=== PATIENT | female | born 1965 | race Caucasian/White ===

== ENCOUNTER 2019-07-05 21:01 | Observation (INO) | payer BC ==
--- NOTE | 2019-07-05 21:04 | EDM.PDOC ---
ED HPI GENERAL MEDICAL PROBLEM - General Chief Complaint: Cardiovascular Problem Stated Complaint: HEART SKIPPING BEATS Time Seen by Provider: 07/05/19 21:03 Source of Information: Reports: Patient History Limitations: Reports: No Limitations - History of Present Illness INITIAL COMMENTS - FREE TEXT/NARRATIVE: Patient is a 54-year-old woman who has a history of PSVT for which she is on Toprol is complaining of having skipped beats which started this morning. These seem to be occurring every 3 to 5 minutes. This is happening more frequently while she is in the emergency department. Patient is feeling lightheaded for the skipped beat and briefly feels some chest discomfort for the few seconds that is occurring. She is not having any chest discomfort otherwise. She states symptoms are decreased when she is doing activity. She is not feeling short of breath nauseous or diaphoretic. He is claiming slightly decreased appetite today. She has not had previously similar symptoms. She denies any swelling to her calves or ankles or any bloody or tarry stools. Patient has taken nothing for current symptoms. Onset: Today Duration: Intermittent Location: Reports: Chest Quality: Reports: Dull Severity: Mild Improves with: Reports: Movement Worsens with: Reports: Rest Associated Symptoms: Reports: Chest Pain, Loss of Appetite. Denies: Diaphoresis , Fever/Chills, Malaise, Nausea/Vomiting, Shortness of Breath, Syncope Generalized Pain Score (Numeric/FACES): 8 - Related Data Allergies Allergy/AdvReac Type Severity Reaction Status Date / Time No Known Allergies Allergy Verified 07/05/19 21:23 Home Meds: Home Meds Levothyroxine 150 mcg PO ACBREAKFAST 07/05/19 [History] Metoprolol Tartrate 100 mg PO BID 07/05/19 [History] atorvaSTATin [Lipitor] 40 mg PO BEDTIME 07/05/19 [History] hydroCHLOROthiazide [Hydrochlorothiazide] 12.5 mg PO DAILY 07/05/19 [History] ED ROS GENERAL - Review of Systems Review Of Systems: Comprehensive ROS is negative, except as noted in HPI. ED EXAM, GENERAL - Physical Exam Exam: See Below Exam Limited By: No Limitations General Appearance: Alert, No Apparent Distress Head: Normocephalic Neck: Normal Inspection, Supple Respiratory/Chest: No Respiratory Distress, Lungs Clear, Normal Breath Sounds Cardiovascular: Regular Rate, Rhythm, No JVD GI/Abdominal: Normal Bowel Sounds, Soft, Non-Tender, No Organomegaly Back Exam: Normal Inspection, Full Range of Motion Extremities: Normal Inspection Neurological: Alert, Oriented, Normal Cognition Psychiatric: Normal Affect Skin Exam: Warm, Dry EKG INTERPRETATION Rhythm: NSR P-Wave: Present QRS: Normal ST-T: Normal EKG Interpretation Comments: Patient is having occasional skipped beat. She does not appear to be in any heart block. She does have inverted T waves and lead V3 and in lead III. Course - Vital Signs Text/Narrative:: Patient's potassium was 2.7. She has been given 40 mEq p.o. I am to encourage her to have potassium rich diet. Patient has a Zio monitor placed. He is planning to return to [place] over the next few days. If she is feeling lightheaded she will use a health erik on her phone to measure her pulse rate and if it is lower than 40 she will immediately return to emergency department. She is to follow-up with her PCP and verification clerk when she returns home for recheck. Return to emergency department anytime she is feeling worse. Last Recorded V/S: Last Vital Signs Temp 37.0 C 07/05/19 21:25 Pulse 92 07/05/19 23:34 Resp 16 07/05/19 23:34 BP 156/113 H 07/05/19 23:34 Pulse Ox 96 07/05/19 23:34 - Orders/Labs/Meds Orders: Active Orders 24 hr Category Date Time Status EKG 12 Lead [EKG Documentation Completion] [RC] STAT Care 07/05/19 21:29 Active Zio Holter Monitor > 48 Hours [RC] .PRN Care 07/05/19 22:06 Active Potassium Chloride Riders [KCL 20 MEQ in Water 50 ML] Med 07/05/19 23:17 Active 10 meq Premix Bag 1 bag IV ONETIME Medication Orders Potassium Chloride 10 meq/ (Premix) 25 mls @ 12.5 mls/hr IV ONETIME ONE Stop: 07/06/19 00:52 Last Admin: 07/05/19 23:29 Dose: 12.5 mls/hr Labs: Laboratory Tests 07/05/19 07/05/19 Range/Units 21:10 21:10 WBC 10.99 (4.0-11.0) K/uL RBC 4.67 (4.30-5.90) M/uL Hgb 13.6 (12.0-16.0) g/dL Hct 40.1 (36.0-46.0) % MCV 85.9 (80.0-98.0) fL MCH 29.1 (27.0-32.0) pg MCHC 33.9 (31.0-37.0) g/dL RDW Std Deviation 40.7 (28.0-62.0) fl RDW Coeff of Yifan 13 (11.0-15.0) % Plt Count 278 (150-400) K/uL MPV 8.70 (7.40-12.00) fL Neut % (Auto) 57.3 (48.0-80.0) % Lymph % (Auto) 29.3 (16.0-40.0) % Meade % (Auto) 10.6 (0.0-15.0) % Eos % (Auto) 2.4 (0.0-7.0) % Baso % (Auto) 0.4 (0.0-1.5) % Neut # (Auto) 6.3 H (1.4-5.7) K/uL Lymph # (Auto) 3.2 H (0.6-2.4) K/uL Meade # (Auto) 1.2 H (0.0-0.8) K/uL Eos # (Auto) 0.3 (0.0-0.7) K/uL Baso # (Auto) 0.0 (0.0-0.1) K/uL Nucleated RBC % 0.0 /100WBC Nucleated RBCs # 0 K/uL Sodium 141 (136-145) mmol/L Potassium 2.7 L (3.5-5.1) mmol/L Chloride 102 (98-107) mmol/L Carbon Dioxide 27.7 (21.0-32.0) mmol/L BUN 15 (7.0-18.0) mg/dL Creatinine 0.9 (0.6-1.0) mg/dL Est Cr Clr Drug Dosing 70.30 mL/min Estimated GFR (MDRD) > 60.0 ml/min Glucose 95 (74-106) mg/dL Calcium 7.7 L (8.5-10.1) mg/dL Magnesium 1.9 (1.8-2.4) mg/dL Total Bilirubin 0.4 (0.2-1.0) mg/dL AST 29 (15-37) IU/L ALT 61 (14-63) IU/L Alkaline Phosphatase 101 (46-116) U/L Troponin I < 0.050 (0.000-0.056) ng/mL Total Protein 7.2 (6.4-8.2) g/dL Albumin 3.9 (3.4-5.0) g/dL Globulin 3.3 (2.6-4.0) g/dL Albumin/Globulin Ratio 1.2 (0.9-1.6) Meds: Medications Generic Name Dose Route Start Last Admin Trade Name Freq PRN Reason Stop Dose Admin Potassium Chloride 10 meq/ 25 mls @ 12.5 mls/hr 07/05/19 23:17 07/05/19 23:29 Premix IV 07/06/19 00:52 12.5 mls/hr ONETIME ONE Administration Discontinued Medications Generic Name Dose Route Start Last Admin Trade Name Freq PRN Reason Stop Dose Admin Sodium Chloride 1,000 mls @ 999 mls/hr 07/05/19 22:38 07/05/19 23:04 Normal Saline IV 07/05/19 23:38 999 mls/hr .BOLUS ONE Administration Potassium Chloride 20 meq/ 50 mls @ 25 mls/hr 07/05/19 22:53 Premix IV 07/06/19 00:52 ONETIME ONE Potassium Chloride 40 meq 07/05/19 22:36 07/05/19 23:04 Klor-Con M20 PO 07/05/19 22:37 40 meq ONETIME ONE Administration Departure - Departure Time of Disposition: 23:50 Disposition: Home, Self-Care 01 Condition: Good Clinical Impression: Palpitations, Hypokalemia Instructions: Palpitations, [id number], Potassium Content of Foods Referrals: PCP,None [Primary Care Provider] - Forms: ED Department Discharge Additional Instructions: The following information is given to patients seen in the emergency department who are being discharged to home. This information is to outline your options for follow-up care. We provide all patients seen in our emergency department with a follow-up referral. The need for follow-up, as well as the timing and circumstances, are variable depending upon the specifics of your emergency department visit. If you don't have a primary care physician on staff, we will provide you with a referral. We always advise you to contact your personal physician following an emergency department visit to inform them of the circumstance of the visit and for follow-up with them and/or the need for any referrals to a consulting specialist. The emergency department will also refer you to a specialist when appropriate. This referral assures that you have the opportunity for follow-up care with a specialist. All of these measure are taken in an effort to provide you with optimal care, which includes your follow-up. Under all circumstances we always encourage you to contact your private physician who remains a resource for coordinating your care. When calling for follow-up care, please make the office aware that this follow-up is from your recent emergency room visit. If for any reason you are refused follow-up, please contact the [facility] Emergency Department at and asked to speak to the emergency department charge nurse. Care Plan Goals: Potassium rich foods. Return to ER symptoms are worse or heart rate less than 50. Follow-up with PCP and verification clerk when you return home to [place]. Sepsis Event Note - Focused Exam Vital Signs: Vital Signs Temp Pulse Resp BP Pulse Ox 07/05/19 23:34 92 16 156/113 H 96 07/05/19 22:36 70 16 148/73 H 97 07/05/19 22:06 71 14 128/72 98 07/05/19 21:41 81 12 159/93 H 97 07/05/19 21:25 37.0 C 95 18 151/71 H 98 Date Exam was Performed: 07/05/19 Time Exam was Performed: 23:48 - My Orders Last 24 Hours: My Active Orders 07/05/19 21:29 EKG 12 Lead [EKG Documentation Completion] [RC] STAT 07/05/19 22:06 Zio Holter Monitor > 48 Hours [RC] .PRN 07/05/19 23:17 Potassium Chloride Riders [KCL 20 MEQ in Water 50 ML] 10 meq Premix Bag 1 bag IV ONETIME - Assessment/Plan Last 24 Hours: My Active Orders 07/05/19 21:29 EKG 12 Lead [EKG Documentation Completion] [RC] STAT 07/05/19 22:06 Zio Holter Monitor > 48 Hours [RC] .PRN 07/05/19 23:17 Potassium Chloride Riders [KCL 20 MEQ in Water 50 ML] 10 meq Premix Bag 1 bag IV ONETIME
[2019-07-05 21:48] LABS: BLOOD UREA NITROGEN,BUN 15 mg/dL (7.0-18.0); CARBON DIOXIDE,CO2 27.7 mmol/L (21.0-32.0); CHLORIDE,CL 102 mmol/L (98-107); GLUCOSE RANDOM 95 mg/dL (74-106); POTASSIUM,K 2.7 mmol/L (3.5-5.1); SODIUM,NA 141 mmol/L (136-145)
[2019-07-05] MEDS ORDERED: Potassium Chloride 10% 20 MEQ/15 ML Soln 15 ML UD Cup PO ONE (22:36)
[2019-07-05] MEDS ORDERED: Potassium Chloride 20 MEQ Tab.ER PO ONE (22:36)
[2019-07-05] MEDS ORDERED: Sodium Chloride 0.9% 1,000 ML IV ONE (22:38)
[2019-07-05] MEDS ORDERED: Potassium Chloride Riders 20 MEQ in Premix Bag 1 BAG IV ONE (22:53)
[2019-07-05] MEDS ORDERED: Potassium Chloride Riders 10 MEQ in Premix Bag 1 BAG IV ONE (23:17)
[2019-07-06] MEDS ORDERED: Metoprolol Tartrate 5 MG/5 ML SDV IVPUSH ONE (00:05)
--- NOTE | 2019-07-06 00:57 | EDM.PDOC ---
ED HPI GENERAL MEDICAL PROBLEM - General Chief Complaint: Cardiovascular Problem Stated Complaint: HEART SKIPPING BEATS Time Seen by Provider: 07/05/19 21:03 Source of Information: Reports: Patient History Limitations: Reports: No Limitations - History of Present Illness INITIAL COMMENTS - FREE TEXT/NARRATIVE: Patient is a 54-year-old woman who has a history of PSVT for which she is on Toprol is complaining of having skipped beats which started this morning. These seem to be occurring every 3 to 5 minutes. This is happening more frequently while she is in the emergency department. Patient is feeling lightheaded for the skipped beat and briefly feels some chest discomfort for the few seconds that is occurring. She is not having any chest discomfort otherwise. She states symptoms are decreased when she is doing activity. She is not feeling short of breath nauseous or diaphoretic. He is claiming slightly decreased appetite today. She has not had previously similar symptoms. She denies any swelling to her calves or ankles or any bloody or tarry stools. Patient has taken nothing for current symptoms. Onset: Today Duration: Intermittent Location: Reports: Chest Quality: Reports: Dull Severity: Mild Improves with: Reports: Movement Worsens with: Reports: Rest Associated Symptoms: Reports: Chest Pain, Loss of Appetite. Denies: Diaphoresis , Fever/Chills, Malaise, Nausea/Vomiting, Shortness of Breath, Syncope Generalized Pain Score (Numeric/FACES): 8 - Related Data Allergies Allergy/AdvReac Type Severity Reaction Status Date / Time No Known Allergies Allergy Verified 07/06/19 00:06 Home Meds: Home Meds Levothyroxine 150 mcg PO ACBREAKFAST 07/05/19 [History] Metoprolol Tartrate 100 mg PO BID 07/05/19 [History] atorvaSTATin [Lipitor] 40 mg PO BEDTIME 07/05/19 [History] hydroCHLOROthiazide [Hydrochlorothiazide] 12.5 mg PO DAILY 07/05/19 [History] Past Medical History HEENT History: Reports: None Cardiovascular History: Reports: High Cholesterol, Hypertension, Other (See Below) Other Cardiovascular History: Supraventricular Tachycardia Respiratory History: Reports: None Gastrointestinal History: Reports: None Genitourinary History: Reports: None RADIOGRAPHIC TECHNOLOGIST History: Reports: None Musculoskeletal History: Reports: None Neurological History: Reports: None Psychiatric History: Reports: None Endocrine/Metabolic History: Reports: Hyperthyroidism Other Endocrine/Metabolic History: Thyriod Cancer Hematologic History: Reports: None Immunologic History: Reports: None Oncologic (Cancer) History: Reports: None Dermatologic History: Reports: None - Infectious Disease History Infectious Disease History: Reports: None - Past Surgical History Head Surgeries/Procedures: Reports: None Endocrine Surgical History: Reports: None Social & Family History - Family History Family Medical History: Noncontributory - Tobacco Use Smoking Status *Q: Former Smoker Years of Tobacco use: 30 Packs/Tins Daily: 1 Used Tobacco, but Quit: Yes Month/Year Tobacco Last Used: 06/2019 Second Hand Smoke Exposure: No - Caffeine Use Caffeine Use: Reports: None - Recreational Drug Use Recreational Drug Use: No ED ROS GENERAL - Review of Systems Review Of Systems: Comprehensive ROS is negative, except as noted in HPI. ED EXAM, GENERAL - Physical Exam Exam: See Below Free Text/Narrative:: Patient is a 54-year-old woman who has a history of PSVT for which she is on Toprol is complaining of having skipped beats which started this morning. These seem to be occurring every 3 to 5 minutes. This is happening more frequently while she is in the emergency department. Patient is feeling lightheaded for the skipped beat and briefly feels some chest discomfort for the few seconds that is occurring. She is not having any chest discomfort otherwise. She states symptoms are decreased when she is doing activity. She is not feeling short of breath nauseous or diaphoretic. He is claiming slightly decreased appetite today. She has not had previously similar symptoms. She denies any swelling to her calves or ankles or any bloody or tarry stools. Patient has taken nothing for current symptoms. Exam Limited By: No Limitations General Appearance: Alert, No Apparent Distress Head: Normocephalic Neck: Normal Inspection, Supple Respiratory/Chest: No Respiratory Distress, Lungs Clear, Normal Breath Sounds Cardiovascular: Regular Rate, Rhythm, No JVD GI/Abdominal: Normal Bowel Sounds, Soft, Non-Tender, No Organomegaly Back Exam: Normal Inspection, Full Range of Motion Extremities: Normal Inspection Neurological: Alert, Oriented, Normal Cognition Psychiatric: Normal Affect Skin Exam: Warm, Dry Course - Vital Signs Text/Narrative:: Patient's potassium was 3.7 and she received 40 mEq p.o. and 20 IV. Patient was having at least 10 episodes of PSVT's where her heart rate was in the 180s which she was able to convert herself out by bearing down. Patient received 5 mg Lopressor IV had taken her metoprolol 100 mg p.o. earlier. Since she is having so frequent episodes of her PSVT I have talked to Dr. Hutchinson and patient will be admitted to telemetry for observation. Last Recorded V/S: Last Vital Signs Temp 37.0 C 07/05/19 21:25 Pulse 75 07/06/19 00:39 Resp 13 07/06/19 00:39 BP 112/69 07/06/19 00:39 Pulse Ox 95 07/06/19 00:39 - Orders/Labs/Meds Orders: Active Orders 24 hr Category Date Time Status EKG 12 Lead [EKG Documentation Completion] [RC] STAT Care 07/05/19 21:29 Active Zio Holter Monitor > 48 Hours [RC] .PRN Care 07/05/19 22:06 Active Labs: Laboratory Tests 07/05/19 07/05/19 Range/Units 21:10 21:10 WBC 10.99 (4.0-11.0) K/uL RBC 4.67 (4.30-5.90) M/uL Hgb 13.6 (12.0-16.0) g/dL Hct 40.1 (36.0-46.0) % MCV 85.9 (80.0-98.0) fL MCH 29.1 (27.0-32.0) pg MCHC 33.9 (31.0-37.0) g/dL RDW Std Deviation 40.7 (28.0-62.0) fl RDW Coeff of Yifan 13 (11.0-15.0) % Plt Count 278 (150-400) K/uL MPV 8.70 (7.40-12.00) fL Neut % (Auto) 57.3 (48.0-80.0) % Lymph % (Auto) 29.3 (16.0-40.0) % Wheeler % (Auto) 10.6 (0.0-15.0) % Eos % (Auto) 2.4 (0.0-7.0) % Baso % (Auto) 0.4 (0.0-1.5) % Neut # (Auto) 6.3 H (1.4-5.7) K/uL Lymph # (Auto) 3.2 H (0.6-2.4) K/uL Wheeler # (Auto) 1.2 H (0.0-0.8) K/uL Eos # (Auto) 0.3 (0.0-0.7) K/uL Baso # (Auto) 0.0 (0.0-0.1) K/uL Nucleated RBC % 0.0 /100WBC Nucleated RBCs # 0 K/uL Sodium 141 (136-145) mmol/L Potassium 2.7 L (3.5-5.1) mmol/L Chloride 102 (98-107) mmol/L Carbon Dioxide 27.7 (21.0-32.0) mmol/L BUN 15 (7.0-18.0) mg/dL Creatinine 0.9 (0.6-1.0) mg/dL Est Cr Clr Drug Dosing 70.30 mL/min Estimated GFR (MDRD) > 60.0 ml/min Glucose 95 (74-106) mg/dL Calcium 7.7 L (8.5-10.1) mg/dL Magnesium 1.9 (1.8-2.4) mg/dL Total Bilirubin 0.4 (0.2-1.0) mg/dL AST 29 (15-37) IU/L ALT 61 (14-63) IU/L Alkaline Phosphatase 101 (46-116) U/L Troponin I < 0.050 (0.000-0.056) ng/mL Total Protein 7.2 (6.4-8.2) g/dL Albumin 3.9 (3.4-5.0) g/dL Globulin 3.3 (2.6-4.0) g/dL Albumin/Globulin Ratio 1.2 (0.9-1.6) Meds: Medications Discontinued Medications Generic Name Dose Route Start Last Admin Trade Name Freq PRN Reason Stop Dose Admin Sodium Chloride 1,000 mls @ 999 mls/hr 07/05/19 22:38 07/05/19 23:04 Normal Saline IV 07/05/19 23:38 999 mls/hr .BOLUS ONE Administration Potassium Chloride 20 meq/ 50 mls @ 25 mls/hr 07/05/19 22:53 07/06/19 00:40 Premix IV 07/06/19 00:52 Not Given ONETIME ONE Potassium Chloride 10 meq/ 25 mls @ 12.5 mls/hr 07/05/19 23:17 07/05/19 23:29 Premix IV 07/06/19 00:52 12.5 mls/hr ONETIME ONE Administration Metoprolol Tartrate 5 mg 07/06/19 00:05 07/06/19 00:10 Lopressor IVPUSH 07/06/19 00:06 5 mg ONETIME ONE Administration Potassium Chloride 40 meq 07/05/19 22:36 07/05/19 23:04 Klor-Con M20 PO 07/05/19 22:37 40 meq ONETIME ONE Administration Departure - Departure Time of Disposition: 00:55 Disposition: Refer to Observation Condition: Good Clinical Impression: Palpitations, Hypokalemia, Paroxysmal supraventricular tachycardia Referrals: PCP,None [Primary Care Provider] - Forms: ED Department Discharge Additional Instructions: The following information is given to patients seen in the emergency department who are being discharged to home. This information is to outline your options for follow-up care. We provide all patients seen in our emergency department with a follow-up referral. The need for follow-up, as well as the timing and circumstances, are variable depending upon the specifics of your emergency department visit. If you don't have a primary care physician on staff, we will provide you with a referral. We always advise you to contact your personal physician following an emergency department visit to inform them of the circumstance of the visit and for follow-up with them and/or the need for any referrals to a consulting specialist. The emergency department will also refer you to a specialist when appropriate. This referral assures that you have the opportunity for follow-up care with a specialist. All of these measure are taken in an effort to provide you with optimal care, which includes your follow-up. Under all circumstances we always encourage you to contact your private physician who remains a resource for coordinating your care. When calling for follow-up care, please make the office aware that this follow-up is from your recent emergency room visit. If for any reason you are refused follow-up, please contact the [facility] Emergency Department at and asked to speak to the emergency department charge nurse. Care Plan Goals: Potassium rich foods. Return to ER symptoms are worse or heart rate less than 50. Follow-up with PCP and crucible packer when you return home to [place]. Sepsis Event Note - Evaluation Sepsis Screening Result: No Definite Risk - Focused Exam Vital Signs: Vital Signs Temp Pulse Pulse Resp BP BP Pulse Ox 07/06/19 00:39 75 13 112/69 95 07/06/19 00:10 97 141/94 H 07/05/19 23:34 92 16 156/113 H 96 07/05/19 22:36 70 16 148/73 H 97 07/05/19 22:06 71 14 128/72 98 07/05/19 21:41 81 12 159/93 H 97 07/05/19 21:25 37.0 C 95 18 151/71 H 98 Date Exam was Performed: 07/06/19 Time Exam was Performed: 00:54 - My Orders Last 24 Hours: My Active Orders 07/05/19 21:29 EKG 12 Lead [EKG Documentation Completion] [RC] STAT 07/05/19 22:06 Zio Holter Monitor > 48 Hours [RC] .PRN - Assessment/Plan Last 24 Hours: My Active Orders 07/05/19 21:29 EKG 12 Lead [EKG Documentation Completion] [RC] STAT 07/05/19 22:06 Zio Holter Monitor > 48 Hours [RC] .PRN
[2019-07-06] MEDS ORDERED: Sodium Chloride 0.9% with KCl 1,000 ML IV SCH (02:30)
[2019-07-06 06:28] LABS: BLOOD UREA NITROGEN,BUN 11 mg/dL (7.0-18.0); CARBON DIOXIDE,CO2 27.9 mmol/L (21.0-32.0); CHLORIDE,CL 106 mmol/L (98-107); GLUCOSE RANDOM 101 mg/dL (74-106); POTASSIUM,K 3.6 mmol/L (3.5-5.1); SODIUM,NA 142 mmol/L (136-145)
--- NOTE | 2019-07-06 08:34 | PCM.HP.2 ---
H&P History of Present Illness - General Date of Service: 07/06/19 Admit Problem/Dx: Admission Diagnosis/Problem Admission Diagnosis/Problem Tachycardia - History of Present Illness Initial Comments - Free Text/Narative: The patient is a 54 year old female with PMH of PSVT, HTN, hyperlipidemia, and hypothyroidism who presented to the ER with her heart skipping beats. States that she had that feeling all day yesterday. She states she has PSVT but this felt different. States it felt like she had the wind knocked out of her. Denies chest pain. Denies hx of MS, CHF, asthma, or COPD. Denies fever/chills , nausea/vomiting, constipation/diarrhea. In the ER, workup revealed no leukocytosis or anemia. She did have a potassium of 2.7, magnesium wnl. Troponin was negative. She was going to be discharged with ziopatch after potassium replacement but then she developed 10 episodes of SVT with HR up to 180s. She did both Valsalva maneuvers and one dose of Lopressor with relief. PCP- In [place] Generalized Pain Score (Numeric/FACES): 8 - Related Data Allergies/Adverse Reactions: Allergies Allergy/AdvReac Type Severity Reaction Status Date / Time No Known Allergies Allergy Verified 07/06/19 02:31 Home Medications: Home Meds Levothyroxine 150 mcg PO ACBREAKFAST 07/05/19 [History] Metoprolol Tartrate 100 mg PO BID 07/05/19 [History] atorvaSTATin [Lipitor] 40 mg PO BEDTIME 07/05/19 [History] Past Medical History HEENT History: Reports: None Cardiovascular History: Reports: High Cholesterol, Hypertension, Other (See Below) Other Cardiovascular History: Supraventricular Tachycardia Respiratory History: Reports: None Gastrointestinal History: Reports: None Genitourinary History: Reports: None [employer]IN [employer]ATION AGENT History: Reports: None Musculoskeletal History: Reports: None Neurological History: Reports: None Psychiatric History: Reports: None Endocrine/Metabolic History: Reports: Hyperthyroidism Other Endocrine/Metabolic History: Thyriod Cancer Hematologic History: Reports: None Immunologic History: Reports: None Oncologic (Cancer) History: Reports: None Dermatologic History: Reports: None - Infectious Disease History Infectious Disease History: Reports: None - Past Surgical History Head Surgeries/Procedures: Reports: None Endocrine Surgical History: Reports: None Social & Family History - Family History Family Medical History: Noncontributory - Tobacco Use Smoking Status *Q: Current Every Day Smoker Years of Tobacco use: 30 Packs/Tins Daily: 0.5 Used Tobacco, but Quit: No Month/Year Tobacco Last Used: 06/2019 Tobacco Use Comment: Consider to quit smoking. Last day of smoking was 6 days ago as per patient statement. Second Hand Smoke Exposure: No - Caffeine Use Caffeine Use: Reports: None - Recreational Drug Use Recreational Drug Use: No H&P Review of Systems - Review of Systems: Review Of Systems: See Below General: Reports: No Symptoms HEENT: Reports: No Symptoms Pulmonary: Reports: No Symptoms Cardiovascular: Reports: Palpitations. Denies: Chest Pain, Edema Gastrointestinal: Reports: No Symptoms Genitourinary: Reports: No Symptoms Musculoskeletal: Reports: No Symptoms Skin: Reports: No Symptoms Psychiatric: Reports: No Symptoms Neurological: Reports: No Symptoms Hematologic/Lymphatic: Reports: No Symptoms Immunologic: Reports: No Symptoms Exam - Exam Exam: See Below - Vital Signs Vital Signs: Last Vital Signs Temp 98.1 F 07/06/19 04:30 Pulse 72 07/06/19 04:30 Resp 18 07/06/19 04:30 BP 100/62 07/06/19 04:30 Pulse Ox 95 07/06/19 04:30 Weight: 111.448 kg - Exam General: Alert, Oriented, Cooperative HEENT: Conjunctiva Clear, EOMI, Mucosa Moist & [place], Posterior Pharynx Clear, Pupils Equal, Pupils Reactive Lungs: Clear to Auscultation, Normal Respiratory Effort Cardiovascular: Regular Rate, Regular Rhythm GI/Abdominal Exam: Normal Bowel Sounds, Soft, Non-Tender, No Distention Extremities: No Pedal Edema Skin: Warm, Dry, Intact Psychiatric: Alert, Normal Affect, Normal Mood - Patient Data Lab Results Last 24 hrs: Laboratory Results - last 24 hr 07/05/19 07/05/19 07/06/19 Range/Units 21:10 21:10 05:51 WBC 10.99 (4.0-11.0) K/uL RBC 4.67 (4.30-5.90) M/uL Hgb 13.6 (12.0-16.0) g/dL Hct 40.1 (36.0-46.0) % MCV 85.9 (80.0-98.0) fL MCH 29.1 (27.0-32.0) pg MCHC 33.9 (31.0-37.0) g/dL RDW Std Deviation 40.7 (28.0-62.0) fl RDW Coeff of Yifan 13 (11.0-15.0) % Plt Count 278 (150-400) K/uL MPV 8.70 (7.40-12.00) fL Neut % (Auto) 57.3 (48.0-80.0) % Lymph % (Auto) 29.3 (16.0-40.0) % [place] % (Auto) 10.6 (0.0-15.0) % Eos % (Auto) 2.4 (0.0-7.0) % Baso % (Auto) 0.4 (0.0-1.5) % Neut # (Auto) 6.3 H (1.4-5.7) K/uL Lymph # (Auto) 3.2 H (0.6-2.4) K/uL [place] # (Auto) 1.2 H (0.0-0.8) K/uL Eos # (Auto) 0.3 (0.0-0.7) K/uL Baso # (Auto) 0.0 (0.0-0.1) K/uL Nucleated RBC % 0.0 /100WBC Nucleated RBCs # 0 K/uL Sodium 141 142 (136-145) mmol/L Potassium 2.7 L 3.6 (3.5-5.1) mmol/L Chloride 102 106 (98-107) mmol/L Carbon Dioxide 27.7 27.9 (21.0-32.0) mmol/L BUN 15 11 (7.0-18.0) mg/dL Creatinine 0.9 0.8 (0.6-1.0) mg/dL Est Cr Clr Drug Dosing 70.30 79.08 mL/min Estimated GFR (MDRD) > 60.0 > 60.0 ml/min Glucose 95 101 (74-106) mg/dL Calcium 7.7 L 7.3 L (8.5-10.1) mg/dL Magnesium 1.9 (1.8-2.4) mg/dL Total Bilirubin 0.4 (0.2-1.0) mg/dL AST 29 (15-37) IU/L ALT 61 (14-63) IU/L Alkaline Phosphatase 101 (46-116) U/L Troponin I < 0.050 (0.000-0.056) ng/mL Total Protein 7.2 (6.4-8.2) g/dL Albumin 3.9 (3.4-5.0) g/dL Globulin 3.3 (2.6-4.0) g/dL Albumin/Globulin Ratio 1.2 (0.9-1.6) TSH 3rd Generation (0.36-3.74) uIU/mL 07/06/19 Range/Units 05:51 WBC (4.0-11.0) K/uL RBC (4.30-5.90) M/uL Hgb (12.0-16.0) g/dL Hct (36.0-46.0) % MCV (80.0-98.0) fL MCH (27.0-32.0) pg MCHC (31.0-37.0) g/dL RDW Std Deviation (28.0-62.0) fl RDW Coeff of Yiafn (11.0-15.0) % Plt Count (150-400) K/uL MPV (7.40-12.00) fL Neut % (Auto) (48.0-80.0) % Lymph % (Auto) (16.0-40.0) % [place] % (Auto) (0.0-15.0) % Eos % (Auto) (0.0-7.0) % Baso % (Auto) (0.0-1.5) % Neut # (Auto) (1.4-5.7) K/uL Lymph # (Auto) (0.6-2.4) K/uL [place] # (Auto) (0.0-0.8) K/uL Eos # (Auto) (0.0-0.7) K/uL Baso # (Auto) (0.0-0.1) K/uL Nucleated RBC % /100WBC Nucleated RBCs # K/uL Sodium (136-145) mmol/L Potassium (3.5-5.1) mmol/L Chloride (98-107) mmol/L Carbon Dioxide (21.0-32.0) mmol/L BUN (7.0-18.0) mg/dL Creatinine (0.6-1.0) mg/dL Est Cr Clr Drug Dosing mL/min Estimated GFR (MDRD) ml/min Glucose (74-106) mg/dL Calcium (8.5-10.1) mg/dL Magnesium (1.8-2.4) mg/dL Total Bilirubin (0.2-1.0) mg/dL AST (15-37) IU/L ALT (14-63) IU/L Alkaline Phosphatase (46-116) U/L Troponin I (0.000-0.056) ng/mL Total Protein (6.4-8.2) g/dL Albumin (3.4-5.0) g/dL Globulin (2.6-4.0) g/dL Albumin/Globulin Ratio (0.9-1.6) TSH 3rd Generation 0.33 L (0.36-3.74) uIU/mL Result Diagrams: 07/05/19 21:10 07/06/19 05:51 Sepsis Event Note - Evaluation Sepsis Screening Result: No Definite Risk - Focused Exam Vital Signs: Vital Signs Temp Pulse Pulse Resp BP BP Pulse Ox 07/06/19 04:30 98.1 F 72 18 100/62 95 07/06/19 01:40 98.1 F 68 18 144/83 H 96 07/06/19 01:31 73 14 112/73 95 07/06/19 00:39 75 13 112/69 95 07/06/19 00:10 97 141/94 H 07/05/19 23:34 92 16 156/113 H 96 07/05/19 22:36 70 16 148/73 H 97 07/05/19 22:06 71 14 128/72 98 07/05/19 21:41 81 12 159/93 H 97 07/05/19 21:25 98.6 F 95 18 151/71 H 98 Date Exam was Performed: 07/06/19 Time Exam was Performed: 10:27 Problem List Initiated/Reviewed/Updated: Yes Orders Last 24hrs: Active Orders 24 hr Category Date Time Status Admission Status [Patient Status] [ADT] Stat ADT 07/06/19 01:12 Active Cardiac Monitoring [RC] Q8H Care 07/06/19 01:38 Active Zio Holter Monitor > 48 Hours [RC] .PRN Care 07/05/19 22:06 Active Regular Diet [DIET] Diet 07/06/19 Breakfast Active Assessment/Plan Comment:: 1. Admit for observation 2.Code status- Full 3. Vitals per routine 4. I/Os per routine 5. Diet- regular 6. DVT prophylaxis with SCDs 7. Palpitations- resolved. Likely related to hypokalemia. TSH checked and ok. Monitored on telemetry with rare PVC and PAC. 8. Hypokalemia- resolved, hold HCTZ. Patient was observed overnight. She was monitored on telemetry without any significant events. She did not experience any more palpitations. Her hypokalemia resolved. Patient felt good and wanted to go home. Will be discharged on home meds but hold HCTZ until she speaks with her PCP. She has a Ziopatch in place from the ER and it is set up to send the results to her physician in [place]. Usual diet as tolerated, activity as tolerated, take medications as prescribed. Symptoms to report to physician include fever/chills , chest pain, heart palpitations, shortness of breath, abdominal pain, erythema , drainage/discharge, or not improving as expected. Follow up with PCP back in [place]. Patient understood and agreed to the plan.
== END 2019-07-06 11:00 | disposition home or self-care (01) ==
LOC: MW.ED 21:01 → MW.MS 07-06 01:12
PROVIDERS: ADMIT Internal Medicine; ATTEND Internal Medicine
DX: R00.2 Palpitations (principal); E87.6 Hypokalemia; E78.00 Pure hypercholesterolemia, unspecified; I10 Essential (primary) hypertension; F17.210 Nicotine dependence, cigarettes, uncomplicated; E05.90 Thyrotoxicosis, unspecified without thyrotoxic crisis or storm; Z79.890 Hormone replacement therapy; Z79.899 Other long term (current) drug therapy
CPT/HCPCS: 36415; 80048; 80053; 83735; 84443; 84484; 85025; 93005; 96365; 96366; 96375; 99285; A9270; G0378; J3480; J3490; J7030; 99283